=== PATIENT | male | born 1970 | race Caucasian/White ===

== ENCOUNTER → 2020-06-13 11:31 | Outpatient (CLI) | payer MEDICARE, MEDICAID, SELFPAY ==
[2020-06-13 12:59] LABS: COVID19 -Nasal RAPID Negative (Negative)
== END ==
PROVIDERS: Visit Provider Physician Assistant
DX: Z20.822 Contact with and (suspected) exposure to COVID-19 (principal)
CPT/HCPCS: 87635

== ENCOUNTER 2020-06-15 10:35 | Day surgery (SDC) | payer MEDICARE, MEDICAID, SELFPAY ==
[2020-06-15] VITALS (18 sets, daily range): BP systolic 117–180; BP diastolic 81–106; PULSE 70–93; RESP 10–20; TEMP 36.1–36.6; O2SAT 83–98; BMI 33.9
--- NOTE | 2020-06-15 | DI.RAD.S_ITS ---
PROCEDURE: XR LUMBAR SPINE 2-3V INDICATIONS: L5-S1 TLIF TECHNIQUE: 3 views of the lumbar spine were acquired. COMPARISON: [facility], CR, XR LUMBAR SPINE WITH OLBIQUES PLUS FLEXION EXTENSION, 12/09/2019, 9:35. FINDINGS: Bones: Intraoperative images demonstrating posterior/interbody fusion at the L5-S1 level with hardware and disc spacer in expected position. Grade 1 spondylolisthesis of the L5 vertebral body over S1. Soft tissues: Overlying bowel gas pattern is normal. No suspicious soft tissue calcifications. IMPRESSION: Interval posterior/interbody fusion L5-S1. Dictated by: Nick Stevens RRA Interpreted: Linda Sanchez MD on 06/15/2020 at 15:20 Approved by: Linda Sanchez MD, PhD on 06/15/2020 at 15:38
[2020-06-15] MEDS: LACTATED RINGERS 1,000 ML 42 ML IV ×2 (11:04→14:09)
--- NOTE | 2020-06-15 11:47 | PM.PREOP ---
Pre-operative Note COVID-19 COVID-19 status: Negative Result date/Date tested (Pos, Neg/Pending): 06/13/20 Interval Note History & Physical reviewed/Exam performed by Physician: Yes Changes to H&P: No
[2020-06-15] MEDS: CEFAZOLIN 2 GM/100 ML FROZ.PIGGY IV ×2 (12:37→20:25)
[2020-06-15] MEDS: ACETAMINOPHEN IV 1,000 MG/100 ML VIAL 400 MG IV (12:50)
--- NOTE | 2020-06-15 13:05 | SUR.OPER ---
Prone on spine table, head in foam head support, padded chest and pelvic supports, gel pad at knees, lower legs supported by pillows; nipples, genitalia and toes free of pressure, arms secured on foam padded arm boards at <90 degrees abduction. Tape over blanket at thigh secured to table.
[2020-06-15] MEDS: BUPIVACAINE LIPOSOME 266 MG/20 ML VIAL INJ (13:14)
[2020-06-15] MEDS: BUPIVACAINE 0.5% W/ EPI (PF) 30 ML VIAL INJ (13:15)
--- NOTE | 2020-06-15 15:17 | P.OP_ITS ---
Operative Date/Time/Diagnoses Date of procedure: 06/15/20 Time of procedure: 12:17 Pre-op diagnosis: 1. L5-S1 spinal stenosis 2. L5-S1 spondylosis with radiculopathy Post-op diagnosis: same Procedure & Clinicians Procedure: 1. L5-S1 Postero-lateral and posterior interbody fusion 2. L5-S1 interbody cage placement. 3. L5-S1 decompressive laminectomy with bilateral facetecomies 4. L5-S1 Posterior non-segmental instrumentation 5. L4-5 right hemilaminectomy 6. Sayre of bone marrow from iliac crest 7. Utilization of microsurgical technique and operating microscope Same procedure as scheduled: Yes Indications: Patient has been having chronic back pain and worsening lumbar radiculopathy. Patient failed multiple conservative management with worsening pain weakness and numbness in her lower extremity. Patient has been having difficulty performing activity of daily living. After discussing risks benefits of treatment options, patient elected proceed with surgery. Surgeon: Lauren David Head Bellhop Captain: Darby Balbuena'Brien Click Yes if Unassisted: No Anesthesia Type: General Operative Notes Closure Type: primary Specimen(s): none sent Prosthetic devices, grafts, tissues, transplants, or devices: Globus revolve screws, Rise cages Estimated Blood Loss (mL): 50 Blood products transfused: none Procedure in detail: Patient was seen in the preoperative area. Risks and benefits of the surgery was discussed with the patient. Informed consent was obtained from the patient and placed in the chart. Surgical site was marked. Patient was taken to the operative room. General anesthesia was administered. Prophylactic antibiotic was given to the patient less than 30 min before the incision was made. Patient was placed into a prone position on the Ricky table. Patient's back was then prepped and draped in the sterile fashion. Time-o ut was performed at this time. Using AP and lateral C-arm imaging the interval between L5-S1 was identified and marked on patient's back. A 2 inch incision 2 in from midline was made on the right side first. The fascia was incised in line with skin incision. Globus MARS retractors was placed inside the incision and docked onto the L5 lamina. Using microsurgical technique and operating microscope, a L5 laminectomy and L5- S1 facetectomy was performed using a Kerrison rongeur. Patient was found have severe lateral recess and neural foramen stenosis which was fully decompressed after the laminectomy facetectomy. More than 75% of the facets were removed during the process of decompression rendering L5-S1 level grossly unstable and required a fusion procedure at the same time. The disc space at L5-S1 was identified. And a total diskectomy was performed at L4-5 level. The endplates were decorticated using a rasp and shaver. The total diskectomy and decortication was performed at L5-S1 level in order to to accomplish a L5-S1 fusion. The local bone from the laminectomy and facetectomy was saved for local bone grafting. After the total diskectomy and decortication was completed, Tr ifecta bone graft material was combined with local bone that was harvested earlier. At this time, a separate skin is incision was made over the iliac crest. A Jamshidi needle was inserted into the iliac crest through a separate skin incision. 5 cc of bone marrow aspiration was obtained through the separate skin incision using a Jamshidi needle from the iliac crest. The bone marrow aspiration was combined with local bone and the Trifecta bone grafting material. The bone grafting material was placed into the L5-S1 interbody space along with a expandable cage. The cage was expanded to its maximum height using the torque limiting screwdriver. The mars retractor was redirected over the L4-5 interval. Using microsurgical technique operative microscope a hemilaminectomy was performed at L4-5 level by removing the medial quarter of the facet along with ligamentum flavum to decompress the lateral recess and epidural space. The neural foramen epidural space was inspected using a micro curette and the space was fully decompressed after the hemilaminectomy at L4-5 level was performed. At this time a mirror image incision was made on the left side. The fascia was incised in line with the skin incision. Globus MARS retractor was inserted and docked onto the L5-S1 posterolateral gutter. Using the power drill, posterior- lateral decortication was performed at L5-S1 level until bleeding cortical bone was identified. The remaining bone grafting material was placed into the L5-S1 posterior lateral gutter he order to accomplish posterolateral fusion at the L5- S1 level. Using the double C-arm technique, pedicle screws were placed into the L5-S1 pedicles bilaterally. This was done by placing the Jamshidi needle into the pedicles, then placing the guidewires over the Jamshidi needle, and finally placing the cannulated screws over the guidewires bilaterally. After the pedicle screws were placed, 2 titanium rods was locked into the heads of the pedicle screws using locking caps and torque limiting screwdriver. After all the hardware was placed, and confirmed with AP and lateral C-arm imaging, the wound was then irrigated with sterile normal saline and packed with Ray-Trino gauze for 3 min to accomplish hemostasis. After the gauze was removed the deep fascia was closed with #1 Vicryl suture. The subcutaneous layer was closed with 2-0 Vicryl. The skin was closed with skin aga. Patient tolerated the procedure well. There were no complications. Complications: none Post-operative Condition: stable Disposition: PACU Plan for aftercare: Admit to inpatient hospital
[2020-06-15] MEDS: hydrOXYzine 50 MG/ML INJ 25 MG IM (15:40)
[2020-06-15] MEDS: OXYCODONE IR 5 MG TABLET PO ×2 (15:40→16:10)
[2020-06-15] MEDS: SODIUM CHLORIDE 0.9% 1,000 ML 100 ML IV (17:10)
--- NOTE | 2020-06-15 18:53 | PC.NURSE ---
pt on 2L 96%, but desats to 83% while sleeping. pt has ARELI, doesn't have a cpap at home, but is willing to try a cpap here in the hospital. VTO from for cpap.
[2020-06-15] MEDS: ONDANSETRON 4 MG/2 ML INJ IV (20:22)
[2020-06-15] MEDS: SENNOSIDES 8.6 MG TABLET 17.2 MG PO (20:28)
[2020-06-15] MEDS: GABAPENTIN 300 MG CAPSULE PO (21:45)
[2020-06-15] MEDS: OXYCODONE IR 5 MG TABLET 10 MG PO (21:45)
[2020-06-15] MEDS: DOCUSATE 100 MG CAPSULE PO (21:46)
[2020-06-15] MEDS: MELATONIN 3 MG TABLET 12 MG PO (21:47)
[2020-06-15] MEDS: METFORMIN HCL 500 MG TABLET 1000 MG PO (21:47)
[2020-06-16 00:44] VITALS: BP 137/73; PULSE 77; RESP 16; TEMP 37.1; O2SAT 98
--- NOTE | 2020-06-16 00:52 | PC.NURSE ---
patient is alert and oriented. Breath sounds CTA with sat of 98% using hospital CPAP w/oxygen bled in at 2L/min (evening RN reports patient with sleep apnea and desats to low 80's when asleep on RA). HRR. Denies nausea. BT present and patient states he is passing flatus. Was up to BS with 2 assist + walker on previous shift to urinate and denies dysuria. Is able to move himself in bed. Dressing to back is CDI. Denies any tingling/numbness and extremities warm with good capillary refill. Wearing bilateral foot SCD's. Fall risk score is high and bed alarm is activated. Denies pain at present time.
[2020-06-16 03:29] VITALS: BP 143/75; PULSE 87; RESP 16; TEMP 36.8; O2SAT 94
[2020-06-16] MEDS: SODIUM CHLORIDE 0.9% 1,000 ML 100 ML IV (03:45)
[2020-06-16] MEDS: CEFAZOLIN 2 GM/100 ML FROZ.PIGGY IV (04:42)
[2020-06-16] MEDS: ONDANSETRON 4 MG/2 ML INJ IV (06:22)
[2020-06-16] MEDS: OXYCODONE IR 5 MG TABLET 10 MG PO ×4 (06:25→16:39)
[2020-06-16 08:00] VITALS: BP 150/89; PULSE 88; RESP 17; TEMP 36.8; O2SAT 96
--- NOTE | 2020-06-16 08:52 | PT.IIE ---
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 posterior instrumentation - Lauren David MD Surgical History (Last Updated 06/13/20 @ 12:19 by Ana María Johnson, RN) H/O carpal tunnel repair History of cervical spinal arthrodesis Hx of cholecystectomy Medical History (Last Updated 06/13/20 @ 12:36 by Ana María Johnson, RN) Back pain Benign lipomatous neoplasm of other sites DDD (degenerative disc disease) DMII (diabetes mellitus, type 2) Hyperlipidemia Hypertension Sleep apnea Spinal stenosis, lumbar region without neurogenic claudication Spondylolisthesis, lumbosacral region Physical Therapy Inpatient Evaluation/Re-Eval M1 PT/OT-IP Prior Functional Status Start: 06/16/20 08:16 Freq: NEEDED Status: Active Protocol: Document 06/16/20 08:52 AW (Rec: 06/16/20 10:19 AW [id number]) Medical Review Prior Functional Status Medical History Reviewed Yes Communication WNL. Pt is an effective verbal communicator. Mobility and Gait Pt is independent in all regards, able to walk ~10 blocks before limited by RLE pain. Activities of Daily Living and IADL's Indpendent Social History Household Members children Living Arrangements House Number of Floors (Floors) One Floor Number of Stairs To Enter/Railing? 2 CYNTHIA with left rail ascending Home Environment Standard Height Toilet,Tub/ Shower Home Equipment Hand Held Shower Additional Social History Comment Pt has an adjustable bed. He lives with his 10 yo son who has autism. Pt has friends , Freddy and Blayne, who have been helping out with pt's son during his hospital stay and who will be staying with him at least one night at discharge. They will be able to intermittently assist after the first night. M2 PT-IP Current Condition Start: 06/16/20 08:16 Freq: NEEDED Status: Active Protocol: Document 06/16/20 08:52 AW (Rec: 06/16/20 10:19 AW [id number]) Physical Therapy Current Condition Current Condition Evaluation Date 06/16/20 Treatment Diagnosis L4-5 kathryn-lami; L5-S1 TLIF Onset Date 06/15/20 Precautions Lumbar Precautions Log Roll,No Twisting,Limit Bending,Lifting Restriction of 10 lbs,Gait Belt above Incisional Area Weight Bearing Status Weight Bearing Status Weight Bear as Tolerated M3 PT-IP Subjective Start: 06/16/20 08:16 Freq: NEEDED Status: Active Protocol: Document 06/16/20 08:52 AW (Rec: 06/16/20 10:19 AW [id number]) Subjective Physical Therapy Visit Type Type Initial Evaluation Visit Start Time 08:25 Visit Stop Time 08:52 Total Visit Minutes 27 Physical Therapy Visit Comments Patient Comments Pt is willing to participate with PT Patient Goals Return home to his son. Therapy Pain Assessment Pain When Pain Assessed During Mobility Pain Present Pain Present Pain Reported Location back Intensity 6 Scale Used 8/10 at rest; improved with mobility Pain Management Techniques Distraction,Timing of Activity with Medications M4 PT-IP Mobility and Gait Start: 06/16/20 08:16 Freq: NEEDED Status: Active Protocol: Document 06/16/20 08:52 AW (Rec: 06/16/20 10:19 AW [id number]) PT-Bed Mobility Assessment Rolling Type of Rolling Log Rolling,Roll to Right Level of Assist Standby Assistance,Contact Guard Assistance Supine to Sit Supine to Sit Standby Assistance Sit to Supine Sit to Supine Standby Assistance Scooting Scooting to Edge of Bed Standby Assistance PT-Transfer Assessment Sit to and From Stand Sit to and from Stand Minimal Assistance,1 Person Assistance,Use of Upper Extremities Equipment Transfer Assistive Device Gait Belt,Front Wheeled Walker Orthotic/Prosthetic Devices or Brace: No Transfers Transfer Destination Bed,Chair Transfer Technique Stand Step Pivot Transfer Ability Level of Assist Standby Assistance Comments Mobility Comments Pt was sitting up in the chair finishing breakfast as PT arrived. He needed min assist to stand from the bedside chair. He used the FWW to ambulate 160 feet to the therapy stairs and return 160 feet to the room SBA. Pt then demonstrated log roll on the right side of the bed to mimic home setup. Pt needed CGA first attempt. With further education, pt was able to complete supine <> sit via log roll SBA. Pt remained in the bed as PT departed. Bed alarm was on for safety. Call light and all needs were within reach. Gait Assessment Gait Gait Assistance Required: Standby Assistance Distance (Feet) 320 Able to Maintain Weight Bearing Status Yes During Gait Assistive Devices Assistive Device Gait Belt,Front Wheeled Walker Orthotic/Prosthetic Devices or Brace: No Gait Deviations General Gait Pattern Antalgic,Decreased Stride Length,Decreased Feet Clearance,Flexed Trunk Factors Limiting Gait Function Factors Limiting Gait Function Decreased Activity Tolerance, Decreased Strength,Pain Comments Gait Comments Pt initially tended to push the walker too far in front but responded well to cues to bring shoulders and hands into alignment. He remarked that it felt better to be more upright. PT adjusted walker height to minimize forward bend with good results. Stair Climbing Assessment Evaluation Level of Assist On Stairs Standby Assistance Devices Stair Climbing Assistive Devices Left Railing Technique/Endurance Stair Climbing Direction Ascend and Descend Stair Climbing Technique Step Over Step,Step to Step Number of Steps Climbed 3 Query Text: Stair Climbing Set # Repetitions (reps) 2 Comments Stair Climbing Comments Pt used the left rail and step over step pattern ascending/ step-to pattern descending with good safety awareness. PT-Balance Assessment Sitting Balance and Reactions Static Sitting Balance Ability Good Dynamic Sitting Balance Ability Good Standing Balance and Reactions Static Standing Balance Ability Good Dynamic Standing Balance Ability Good Device Used FWW M5 PT-IP Objective Assessments Start: 06/16/20 08:16 Freq: NEEDED Status: Active Protocol: Document 06/16/20 08:52 AW (Rec: 06/16/20 10:19 AW [id number]) Orientation Orientation/Cognition Level of Alertness Alert Orientation Name,Day of Week,Place, Situation Language Function Ability No Deficits Noted Safety Awareness Understands Safety Issues Memory Description No Deficits Noted Gross Range of Motion Lower Extremity ROM Assessment Within Functional Limits Strength Lower Extremity Strength Hip 4/5 Knee 4+/5 Sensation Assessment Sensation Gross Sensation Right LE Impaired Sensation Description Numbness Comments Sensation Comments Slight numbness noted in posterior thigh. Improved with mobility. M6 PT-IP Treatment Start: 06/16/20 08:16 Freq: NEEDED Status: Active Protocol: Document 06/16/20 08:52 AW (Rec: 06/16/20 10:19 AW [id number]) Physical Therapy Treatment Education Education Provided Precautions,Weight Bearing Status,Post-Op Packet,Safety Other Treatments Other Treatment Performed Educated pt on role of PT, plan of care, post-op precautions, and DME considerations for home. M7 PT-IP Assessment and Plan Start: 06/16/20 08:16 Freq: NEEDED Status: Active Protocol: Document 06/16/20 08:52 AW (Rec: 06/16/20 10:19 AW [id number]) PT Summary Assessment and Plan Potential Rehabilitation Potential Good Status of Condition at Evaluation Evolving Summary Impairments Pain,ROM,Strength,Sensation, Bed Mobility,Transfers,Gait, Activity Tolerance Assessment Summary Henrik is a 50 yo man seen for PT evaluation on POD1 following L4-S1 kathryn- laminectomy and TLIF. Pt is independent in all regards at baseline and parents his 10 yo son alone. On evaluation, pt required SBA for all mobility with FWW except min assist with sit to stand. Pt would benefit from an additional PT visit to review precautions and to work on sit to stand from various surfaces. Pt will need a FWW for home use; order has been secured. PT also recommends raised toilet seat and shower chair/transfer bench for home. Pt will be safe for discharge with assist once medically cleared. Goals Bed Mobility Goal Independent Transfer Goal Independent,Front Wheeled Walker Gait Goal Independent,Front Wheel Walker Gait Distance 300 Other Goals - up/down 3 steps with left rail ascending IND - pt will complete sit to stand from standard toilet and bedside chair SBA Days to Meet Goals 2 Frequency of Treatment Frequency Of Treatment Twice a Day Treatment Plan Physical Therapy Treatment Plan Bed Mobility Training,Transfer Training,Gait Training, Therapeutic Exercise,Balance Retraining,Post Op Education, Discharge Planning,Hot or Cold Pack Other Recommendations and Next Treatment sit to stand from bed, chair, Focus toilet Precautions Lumbar Precautions Log Roll,No Twisting,Limit Bending,Lifting Restriction of 10 lbs,Gait Belt above Incisional Area Recommendations To Nursing Amount of Assist Needed 1 Person Assist Discharge Recommendations PT Discharge Recommendations Home with Assistance Transportation Needs at Discharge Private Vehicle
[2020-06-16 09:33] VITALS: PULSE 83; RESP 14; O2SAT 96
[2020-06-16] MEDS: METFORMIN HCL 500 MG TABLET 1000 MG PO (09:36)
[2020-06-16] MEDS: hydrOXYzine pamoate 25 MG CAPSULE PO ×2 (09:37→13:39)
[2020-06-16] MEDS: GABAPENTIN 300 MG CAPSULE PO ×2 (09:37→16:10)
[2020-06-16] MEDS: SITAGLIPTIN 50 MG TABLET 100 MG PO (09:37)
[2020-06-16] MEDS: DOCUSATE 100 MG CAPSULE PO (09:37)
[2020-06-16] MEDS: lisinopriL 20 MG TABLET PO (09:37)
--- NOTE | 2020-06-16 10:27 | CM.IDA ---
Initial DCP Assessment Note Pt is a 50 yo male, resident of [place], now POD#1 from spinal surgery w/ Dr David PCP: Not Listed Payer: [facility]/HERBER ALEXIS Reviewed chart, pt discussed in multidisciplinary rounds this morning. Therapy has cleared pt for return home w/friends to assist and pt has planned for home, DC order from Ortho is expected. Patient has a 10 yo son w/special needs, friends are assisting at this time, patient eager to return home. No needs expected from DC planning team although will remain available in case this changes today. DIXON Cole
--- NOTE | 2020-06-16 11:12 | OT.IP.EVAL ---
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 posterior instrumentation - Lauren David MD Past Medical History (Last Updated 06/13/20 @ 12:36 by Ana María Johnson, RN) Back pain Benign lipomatous neoplasm of other sites DDD (degenerative disc disease) DMII (diabetes mellitus, type 2) Hyperlipidemia Hypertension Sleep apnea Spinal stenosis, lumbar region without neurogenic claudication Spondylolisthesis, lumbosacral region Surgical History (Last Updated 06/13/20 @ 12:19 by Ana María Johnson, ADELINE) H/O carpal tunnel repair History of cervical spinal arthrodesis Hx of cholecystectomy Occupational Therapy Inpatient Evaluation/Re-Eval M1 PT/OT-IP Prior Functional Status Start: 06/16/20 13:03 Freq: NEEDED Status: Active Protocol: Document 06/16/20 10:37 [facility] (Rec: 06/16/20 13:18 [facility] [id number]) Medical Review Prior Functional Status Medical History Reviewed Yes Communication WNL. Pt is an effective verbal communicator. Mobility and Gait Pt is independent in all regards, able to walk ~10 blocks before limited by RLE pain. Activities of Daily Living and IADL's Independent but just more difficulty to do. Social History Household Members children Living Arrangements House Number of Floors (Floors) One Floor Number of Stairs To Enter/Railing? 2 CYNTHIA with left rail ascending Home Environment Standard Height Toilet,Tub/ Shower Home Equipment Hand Held Shower Additional Social History Comment Per PT eval-Pt has an adjustable bed. He lives with his 10 yo son who has autism. Pt has friends , Freddy and Blayne, who have been helping out with pt's son during his hospital stay and who will be staying with him at least one night at discharge. They will be able to intermittently assist after the first night. M2 OT-IP Current Condition Start: 06/16/20 13:03 Freq: Status: Active Protocol: Document 06/16/20 10:37 [facility] (Rec: 06/16/20 13:18 [facility] [id number]) Occupational Therapy Current Condition Current Condition Evaluation Date 06/16/20 Treatment Diagnosis S/P L4-5 kathryn-lami and L5-S1 TLIF Diagnosis Onset Date 06/15/20 Post Operative Precautions Lumbar Precautions Log Roll,No Twisting,Limit Bending,Lifting Restriction of 10 lbs,Gait Belt above Incisional Area M3 OT- IP Subjective and Pain Start: 06/16/20 13:03 Freq: Status: Active Protocol: Document 06/16/20 10:37 [facility] (Rec: 06/16/20 13:18 [facility] [id number]) OT- Subjective Occupational Therapy Visit Type Type Initial Evaluation Visit Start Time 10:39 Visit Stop Time 11:12 Total Visit Minutes 33 Occupational Therapy Visit Comments Patient Comments Pt agreed to do OT eval. Patient/Caregiver Goals TO go home. OT Pain Assessment Pain When Pain Assessed At Rest Pain Present Pain Present Pain Reported Location back Intensity 5 Scale Used Numeric (0 - 10) M4 OT- IP ADL's Start: 06/16/20 13:03 Freq: Status: Active Protocol: Document 06/16/20 10:37 [facility] (Rec: 06/16/20 13:18 [facility] [id number]) OT [id number] Comments OT Self-Feeding Comments Not at meal time. OT ADL-Grooming Comments OT Grooming Comments VC to spit into a cup or hinge at his hips to spit into the sink to best follow his back precautions. OT ADL-Dressing General Eval Lower Body Dressing Ability Maximum Assistance Comments OT Dressing Comments Educated and issued pt LB dressing equipment to increased ease and independence for all dressing needs. Pt will still need assist for to tie his shoes. OT ADL-Toileting General Evaluation Toileting Ability Standby Assistance Comments OT Toileting Comments Pt able to stand and reach back to wipe and also suggested use of wipes. OT ADL-Bathing Comments OT Bathing Comments Pt states to shower at home. Suggested to have someone assist him and possible get a tub bench versus shower chair. M5 OT- IP IADL's Start: 06/16/20 13:03 Freq: Status: Active Protocol: Document 06/16/20 10:37 [facility] (Rec: 06/16/20 13:18 [facility] [id number]) OT-Instrumental Activities of Daily Living Home Safety Awareness Awareness of Need for Assistance at Home Good Awareness Ability to Problem Solve Emergency Able to Problem Solve Situations Medication Management Medication Management No Deficits Identified Money Management Money Management Caregiver Provides Supervision Money Management Comments Pt states his parents are assisting. M6 OT- IP Functional Cognition Start: 06/16/20 13:03 Freq: Status: Active Protocol: Document 06/16/20 10:37 [facility] (Rec: 06/16/20 13:18 [facility] [id number]) Cognitive Factors Limiting Selfcare Function Cognitive Ability Level of Alertness Alert Patient Orientation Name,Place,Situation Attention Span Ability Capable of Focused Attention, Capable of Sustained Attention Ability to Follow Commands Able to Follow Multi-Step Commands Memory Description Short Term Impaired Safety Awareness Decreased Ability to Apply Precautions,Underestimates Need for Assistance Cognitive Comments Cognitive Assessment Comments Pt a bit impulsive and needing cues to remember his back precautions as pt tends to want to twist too much at times. OT- Vision and Hearing OT- Hearing Assessment OT- Hearing Assessment WFL M7 OT- IP Mobility and Balance Start: 06/16/20 13:03 Freq: Status: Active Protocol: Document 06/16/20 10:37 [facility] (Rec: 06/16/20 13:18 [facility] [id number]) OT- Bed Mobility Assessment Supine to Sit Supine to Sit Assist Standby Assistance Sit to Supine Sit to Supine Assist Standby Assistance OT-Transfer Assessment Sit to and From Stand Sit to and from Stand Standby Assistance Transfers Transfer Ability Standby Assistance Technique Transfer Destination Bed,Toilet Devices Transfer Assistive Devices Gait Belt,Front Wheeled Walker Comments Mobility Comments Pt has difficulty with transitions to stand and prefers to hold FWW to help stand himself up at this time. Educated best to push from the bed or surface, but pt insisting will just push up on the FWW so that he can get up . OT- Gait Assessment Comments Gait Ability Comments SBA with FWW. OT- Balance Assessment Sitting Balance and Reactions Static Sitting Balance Ability Normal Dynamic Sitting Balance Ability Good Standing Balance and Reactions Static Standing Balance Ability Fair M8 OT- IP Objective Assessments Start: 06/16/20 13:03 Freq: Status: Active Protocol: Document 06/16/20 10:37 [facility] (Rec: 06/16/20 13:18 [facility] [id number]) OT Gross Range of Motion Upper Extremity Range of Motion Assessment Right Impaired OT Strength Upper Extremity Strength Assessment Within Functional Limits M9 OT- IP Assessment and Plan Start: 06/16/20 13:03 Freq: Status: Active Protocol: Document 06/16/20 10:37 [facility] (Rec: 06/16/20 13:18 [facility] [id number]) OT Summary Assessment and Plan Potential Rehabilitation Potential Good Analytic Complexity at Evaluation Low Summary OT Impairments Functional Cognition, Functional Mobility,Dressing, Toileting,Bathing Progress Towards Goals Progressing Toward Goals Assessment Summary Pt low complexity and main barriers are pt is a bit impulsive, needing work on transitions to stand, steps and needing cues to incorporate his back precautions. Pt would benefit from more practice and assist at home. Goals Grooming Goal Independent Dressing Goal Independent Toileting Goal Independent Bathing Goal Independent Toilet Transfer Goal Independent Shower Transfer Goal Independent Patient/Caregiver Education Goal Demonstrate Post-Op Precautions Days to Meet Goals 3 Frequency of Treatment Frequency Of Treatment Once a Day Treatment Plan OT Treatment Plan ADL Training,Functional Cognition Training,Functional Mobility,Patient/Family Education,Discharge Planning Other Treatment Recommendations and Next Shower if still here. Treatment Focus Discharge Recommendations OT Discharge Recommendations Home with Assistance Home Equipment Needs Urinal, tub bench /shower chair Transportation Needs at Discharge Private Vehicle
[2020-06-16 11:45] VITALS: BP 145/70; PULSE 80; RESP 15; TEMP 36.6; O2SAT 97
--- NOTE | 2020-06-16 12:32 | P.DS_ITS ---
History of Present Illness History of Present Illness Date Patient Seen: 06/16/20 Time Patient Seen: 12:32 Chief complaint: OPB Narrative: Please refer to HPI previously submitted to the chart. Discharge Providers Provider Discharge Date: 06/16/20 Primary care physician: Doctor Renee MD Consults: 06/13/20 12:35 Consult to Respiratory Therapy Evaluate & Treat Comment: Sleep Apnea, doesn't tolerated CPAP Physician Instructions: Evaluate and treat 06/15/20 16:51 Consult to Occupational Therapy Evaluate & Treat Comment: Physician Instructions: Evaluate and treat Consult to Physical Therapy Evaluate & Treat Comment: Physician Instructions: Evaluate and Treat 06/16/20 08:55 Consult to Physical Therapy Evaluate & Treat Comment: Physician Instructions: FWW For Home Use Discharge provider: Godfrey Carey PA-C Summary Hospital Course Discharge Diagnosis: 1. L5-S1 spinal stenosis 2. L5-S1 spondylosis with radiculopathy 3. S/P L5-S1 TLIF Hospital Course: 50-year-old male with the above-listed diagnoses was appropriately consented for the above listed procedure and presented to OR undergoing said procedure without difficulty or complication then admitted to hospital for rehabilitation including but not limited to pain management, antiemetics, physical therapy and occupational therapy for recommended appropriate disposition home today. On surgical evaluation the patient was stable for discharge and doing well. He was able to void and no longer nauseous. His wound was clean, dry and intact. The patient denied any new or related intractable pain, weakness, numbness and/or tingling in the bilateral lower extremities as well as no loss control of bowel or bladder dysfunction. There was also no fever, chills, shortness of breath and chest pain. The patient verbalized understanding postoperative care protocols, instructions and precautions/restrictions. He agreed with plan to follow-up in 2 weeks for re- evaluation and staple removal or sooner as needed. Status at Discharge Cognitive/behavioral status at discharge: oriented Functional status at discharge: independent ambulation Overall status at discharge: patient is progressing back to baseline Time Spent with Patient Time spent: Less than 30 minutes Exam Vital Signs (past 8 hours): - 06/16/20 08:00 06/16/20 09:33 06/16/20 11:45 Temperature 98.2 F 97.9 F Pulse Rate 88 83 80 Respiratory Rate 17 14 15 Blood Pressure 150/89 H 145/70 H Pulse Oximetry 96 96 97 Oxygen Delivery Method Room Air Oxygen Flow Rate 0 Narrative Exam Narrative: 50-year-old male observed lying comfortably in bed without distress as well as being alert and oriented x3. His wound was clean, dry and intact. There was only minimal appropriate tenderness to palpation around his incision without fasciculations or spasm. Exam of the bilateral lower extremities including HF, quads, TA, EHL were 5/5 bilaterally with negative bilateral straight leg raises and normal grossly intact sensation to light touch. Bilateral calves were soft, compressible and nontender with negative Homans signs. [facility] Medical History (Updated 06/13/20 @ 12:36 by Ana María Johnson, RN) Back pain Benign lipomatous neoplasm of other sites DDD (degenerative disc disease) DMII (diabetes mellitus, type 2) Hyperlipidemia Hypertension Sleep apnea Spinal stenosis, lumbar region without neurogenic claudication Spondylolisthesis, lumbosacral region Surgical History (Updated 06/13/20 @ 12:19 by Ana María Johnson RN) H/O carpal tunnel repair History of cervical spinal arthrodesis Hx of cholecystectomy Social History household members: children Smoking Status: Former smoker alcohol intake: never Discharge Assessment & Plan Assessment and Plan Assessment: 1. L5-S1 spinal stenosis 2. L5-S1 spondylosis with radiculopathy 3. POD # 1 S/P L5-S1 TLIF currently doing well and stable for discharge home today. Plan of Treatment: 1. Stable for discharge home today. 2. Postoperative lumbar fusion care protocols, instructions and precautions/restrictions apply. 3. Follow-up in 2 weeks in clinic for re-evaluation and staple removal or sooner as needed. Discharge Plan Discharge Plan Patient Disposition: Home Discharge orders & Medications Discharge Orders: Discharge (Order); Ordered 06/16/20 Ordered By: Godfrey Carey Prescriptions: New acetaminophen 325 mg Tablet 650 mg PO Q6HR PRN (Reason: Pain, Mild (1-3)) Qty: 60 RF: 0 docusate sodium [DOK] 100 mg Capsule 100 mg PO BID PRN (Reason: Constipation) Qty: 60 RF: 0 oxycodone 5 mg Tablet 10 mg PO Q4-5H PRN (Reason: Pain, Severe (7-10)) Qty: 60 RF: 0 Continued lisinopril 20 mg tablet 20 mg PO DAILY RF: 0 metformin 1,000 mg tablet 1,000 mg PO BID RF: 0 gabapentin 300 mg capsule 300 mg PO TID RF: 0 Januvia 100 mg tablet 100 mg PO DAILY RF: 0 Lantus Solostar U-100 Insulin 100 unit/mL (3 mL) insulin pen 50 unit SUBCUT BEDTIME RF: 0 Jardiance 10 mg tablet 10 mg PO DAILY RF: 0 melatonin 10 mg Tablet 15 mg PO BEDTIME RF: 0 Discontinued oxycodone-acetaminophen 5-325 mg tablet 1 tab PO Q4-6H PRN (Reason: Pain) RF: 0 Follow up/Referrals: Lauren David MD [Physician] - (Follow-up in clinic in 2 weeks for re-evaluation and staple removal.) Doctor Duran MD [Primary Care Provider] - Diet/Activity/Treatments Diet: Diet as Tolerated and Carb-consistent/Diabetic Activity: Avoid excessive bending, lifting and or twisting. Cold/Heat Therapy: Ice 20 minutes every hour as needed and tolerated. Skin/Wound/Dressing Care Report to your healthcare provider any signs of infection, such as:: chills, fe phillip, night sweats, increased pain, unusual drainage and unusual redness Dressing: Keep dressing clean, dry and intact changing only as needed if soiled or saturated. Call clinic as needed for concerns. Visit Report/Discharge Packet Instructions: DI for Transforaminal Lumbar Interbody Fusion Stand Alone Forms: Surgery Discharge Discharge Data Primary Care Provider: Doctor Renee Attending Provider: Lauren David Quality MIPS - Admit Advanced Care Plan / Current Medications Measures: #47 ? Advanced Care Plan Clinician documentation instruction: document at admission. [] I confirmed that the patient's Advance Care Plan is present, code status is documented, or surrogate decision maker is listed in the patient?s medical record. [SATISFIES MIPS PERFORMANCE] If Yes, Stop Here [] The patient?s Advance Care plan is not present because: (select) [MIPS PERFORMANCE EXCEPTION/EXCLUSION] [] I confirmed today that the patient does not wish or was not able to name a surrogate decision maker or provide an Advance Care Plan. [] Hospice care is currently being provided or has been provided this calendar year [] I did NOT confirm today the presence of an Advance Care Plan or surrogate decision maker documented within the patient's medical record. [DOES NOT SATISFY MIPS PERFORMANCE] #130 - Documentation of Current Medications in the Medical Record Clinician documentation instruction: use macro the first time you see a patient. [] I have utilized all available immediate resources to obtain, update, or review the patient?s current medications. [SATISFIES MIPS PERFORMANCE] If Yes, Stop Here [] The patient is not eligible for medication reconciliation; the patient is in an emergent medical situation where delaying treatment would jeopardize the patient?s health. [MIPS PERFORMANCE EXCEPTION/EXCLUSION] [] I did NOT confirm, update or review the patient's current list of medications today. [DOES NOT SATISFY MIPS PERFORMANCE] MIPS - CL Central Venous Catheter Placement Measure: #76 ? Prevention of Central Venous Catheter (CVC) ? Related Bloodstream Infection Clinician documentation instruction: use macro every time you place a central line. [] All elements of Maximal Sterile Barrier Technique, including hand hygiene, skin prep, and sterile ultrasound technique (if used) were followed. [SATISFIES MIPS PERFORMANCE] If Yes, Stop Here [] If ?No?, the medical reason all elements were NOT used for medical reason [] (ex. emergent condition). [] Maximal Sterile Barrier Technique was not followed, no reason provided [DOES NOT SATISFY MIPS PERFORMANCE] MIPS - DC Heart Failure Measures: #5 - Heart Failure (HF): Angiotensin-Converting Enzyme (MADDIE) Inhibitor or Angiotensin Receptor Attila (ARB) Therapy for Left Ventricular Systolic Dysfunction (LVSD) and #8 - Heart Failure (HF): Beta-Attila Therapy for Left Ventricular Systolic Dysfunction (LVSD) Clinician documentation instruction: use macro at every CHF discharge. [] The patient has current or prior documentation of left ventricular ejection fraction (LVEF) less than 40%, or moderate or severely depressed left ventricular systolic function. Answer both: [SATISFIES MIPS PERFORMANCE] [] The patient was prescribed or already taking an Angiotensin-Converting Enzyme (MADDIE) Inhibitor, or Angiotensin Receptor Attila (ARB). [] The patient was prescribed or already taking a beta-attila. If Yes to Both, Stop Here [] Patient not prescribed/taking: [MIPS PERFORMANCE EXCEPTION/EXCLUSION] [] MADDIE or ARB for medical/patient/system reason(s) including [] (ex. allergy, intolerance, contraindication) [] Beta-attila for medical/patient/system reason(s) including [] (ex. allergy, intolerance, contraindication) [] Patient not prescribed/taking: [DOES NOT SATISFY MIPS PERFORMANCE] [] MADDIE or ARB, no reason given [] Beta-attila, no reason given
--- NOTE | 2020-06-16 13:28 | PT.IPTN ---
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 posterior instrumentation - Lauren David MD Physical Therapy Treatment Note M2 PT-IP Current Condition Start: 06/16/20 08:16 Freq: NEEDED Status: Active Protocol: Document 06/16/20 08:52 AW (Rec: 06/16/20 10:19 AW [id number]) Physical Therapy Current Condition Current Condition Evaluation Date 06/16/20 Treatment Diagnosis L4-5 kathryn-lami; L5-S1 TLIF Onset Date 06/15/20 Precautions Lumbar Precautions Log Roll,No Twisting,Limit Bending,Lifting Restriction of 10 lbs,Gait Belt above Incisional Area Weight Bearing Status Weight Bearing Status Weight Bear as Tolerated M3 PT-IP Subjective Start: 06/16/20 08:16 Freq: NEEDED Status: Active Protocol: Document 06/16/20 13:28 AB (Rec: 06/16/20 15:24 AB [id number]) Subjective Physical Therapy Visit Type Type Treatment Note Visit Start Time 13:28 Visit Stop Time 13:57 Total Visit Minutes 29 Number of PARKING SUPERVISOR Visits 0 Physical Therapy Visit Comments Patient Comments pt is agreeable to do PT Therapy Pain Assessment Pain When Pain Assessed At Rest Pain Present Pain Present Pain Reported Location back Intensity 9 Scale Used Numeric (0 - 10) M4 PT-IP Mobility and Gait Start: 06/16/20 08:16 Freq: NEEDED Status: Active Protocol: Document 06/16/20 13:28 AB (Rec: 06/16/20 15:24 AB [id number]) PT-Bed Mobility Assessment Rolling Level of Assist Standby Assistance Supine to Sit Supine to Sit Standby Assistance Sit to Supine Sit to Supine Standby Assistance PT-Transfer Assessment Sit to and From Stand Sit to and from Stand Standby Assistance,1 Person Assistance,Use of Upper Extremities Equipment Transfer Assistive Device Gait Belt,Front Wheeled Walker Orthotic/Prosthetic Devices or Brace: No Transfers Transfer Destination Bed,Chair Transfer Technique Stand Step Pivot Transfer Ability Level of Assist Standby Assistance Comments Mobility Comments adjusted and dispensed FWW for home use. pt signed papers for FWW. pt completed sit to stand from EOB with B hands on FWW but with FWW tilting slightly backwards. pt prefers get up with hands on FWW due to increase pain if done otherwise. educated on safety and techniques and completed sit to stand so that FWW will not tilt back and pt was able to complete. pt completed ambulation towards the stairs using FWW SBA. completed stairs using L rail x 2 sets SBA. pt ambulated back to his room. completed supine <>sit SBA and lay back in bed to rest as requested. positioned in bed. call light and table placed within reach. Gait Assessment Gait Gait Assistance Required: Standby Assistance Distance (Feet) 250 Able to Maintain Weight Bearing Status Yes During Gait Assistive Devices Assistive Device Gait Belt,Front Wheeled Walker Orthotic/Prosthetic Devices or Brace: No Factors Limiting Gait Function Factors Limiting Gait Function Decreased Activity Tolerance, Decreased Strength,Pain,Poor Balance Stair Climbing Assessment Evaluation Level of Assist On Stairs Standby Assistance Devices Stair Climbing Assistive Devices Left Railing Technique/Endurance Stair Climbing Direction Ascend and Descend Stair Climbing Technique Step to Step Number of Steps Climbed 3 Stair Climbing Set # Repetitions (reps) 2 Comments Stair Climbing Comments pt completed up/down stairs using L rail with 1 hand initially SBA. educated on safety and if needed can use B hands on L rail and pt completed again using B hands on L rail side stepping SBA. M5 PT-IP Objective Assessments Start: 06/16/20 08:16 Freq: NEEDED Status: Active Protocol: Document 06/16/20 08:52 AW (Rec: 06/16/20 10:19 AW [id number]) Orientation Orientation/Cognition Level of Alertness Alert Orientation Name,Day of Week,Place, Situation Language Function Ability No Deficits Noted Safety Awareness Understands Safety Issues Memory Description No Deficits Noted Gross Range of Motion Lower Extremity ROM Assessment Within Functional Limits Strength Lower Extremity Strength Hip 4/5 Knee 4+/5 Sensation Assessment Sensation Gross Sensation Right LE Impaired Sensation Description Numbness Comments Sensation Comments Slight numbness noted in posterior thigh. Improved with mobility. M6 PT-IP Treatment Start: 06/16/20 08:16 Freq: NEEDED Status: Active Protocol: Document 06/16/20 13:28 AB (Rec: 06/16/20 15:24 AB [id number]) Physical Therapy Treatment Education Education Provided Precautions,Safety Equipment Issued Equipment Type and Company FWW ([employer]) dispensed and pt signed M7 PT-IP Assessment and Plan Start: 06/16/20 08:16 Freq: NEEDED Status: Active Protocol: Document 06/16/20 13:28 AB (Rec: 06/16/20 15:24 AB [id number]) PT Summary Assessment and Plan Potential Rehabilitation Potential Good Summary Impairments Pain,ROM,Strength,Balance, Coordination,Sensation,Tone, Cognition,Bed Mobility, Transfers,Gait,Activity Tolerance Progress Towards Goals Progressing Toward Goals Assessment Summary pt requiring SBA with mobility using FWW. pt plans to go home later today and his friend to assist him overnight and will be available if needed. FWW dispensed and pt signed papers. Goals Bed Mobility Goal Independent Transfer Goal Independent,Front Wheeled Walker Gait Goal Independent,Front Wheel Walker Gait Distance 300 Other Goals - up/down 3 steps with left rail ascending IND - pt will complete sit to stand from standard toilet and bedside chair SBA Days to Meet Goals 2 Frequency of Treatment Frequency Of Treatment Twice a Day Treatment Plan Physical Therapy Treatment Plan Bed Mobility Training,Transfer Training,Gait Training, Therapeutic Exercise,Balance Retraining,Post Op Education, Discharge Planning,Hot or Cold Pack Precautions Lumbar Precautions Log Roll,No Twisting,Limit Bending,Lifting Restriction of 10 lbs,Gait Belt above Incisional Area Recommendations To Nursing Amount of Assist Needed 1 Person Assist Discharge Recommendations PT Discharge Recommendations Home with Assistance Transportation Needs at Discharge Private Vehicle
--- NOTE | 2020-06-16 15:44 | PC.NURSE ---
Patient cleared by PT, walker delivered. Patient is ready for discharge this evening when his friend is able to pick him up. Discharge paperwork and prescriptions ready for patient, he is sleeping at this time and evening shift RN will review with patient prior to his leaving. Coversite to back dressing remains CDI. Patient to follow up with surgeon as scheduled.
[2020-06-16 15:50] VITALS: BP 140/81; PULSE 100; RESP 16; TEMP 37.5; O2SAT 95
[2020-06-16] MEDS: ACETAMINOPHEN 325 MG TABLET 650 MG PO (16:10)
[2020-06-16] MEDS: INSULIN ASPART 100 UNIT/ML INSULN PEN SUBCUT (16:44)
--- NOTE | 2020-06-16 18:43 | PC.NURSE ---
Discharge Note- Patient discharged home per MD. Discharge instructions and education reviewed with patient and signed. Patient dressed self and packed up all personal belongings. Patient left via wheelchair to private car at 1830.
== END 2020-06-16 18:30 | disposition home or self-care (01) ==
LOC: OR 12:35 → AC 13:01
PROVIDERS: Referring Provider Orthopaedic Surgery Orthopaedic Surgery of the Spine; Visit Provider Orthopaedic Surgery Orthopaedic Surgery of the Spine
PROC: (CPT 22633; principal; 2020-06-15 12:15)
DX: M48.061 Spinal stenosis, lumbar region without neurogenic claudication (principal); M43.17 Spondylolisthesis, lumbosacral region; M54.17 Radiculopathy, lumbosacral region; E11.9 Type 2 diabetes mellitus without complications; I10 Essential (primary) hypertension; E78.5 Hyperlipidemia, unspecified; G47.33 Obstructive sleep apnea (adult) (pediatric); Z79.4 Long term (current) use of insulin
CPT/HCPCS: 22633; 22840; 22853; 63030; 20939; 63047; 72100; 76000; 82962; 94760; 97116; 97161; 97165; 97530; 97535; C1776; C9290; J0131; J0690; J1100; J1170; J2250; J2405; J2704; J3010; J3410